=== PATIENT | female | born 1975 | race Caucasian/White ===

== ENCOUNTER 2023-03-31 10:46 | Day surgery (SDC) | payer MEDICAID ==
[~2023-03-31] VITALS: Ht 165.1 cm; Wt 63.0 kg
[2023-03-31] MEDS ORDERED: diphenhydrAMINE 50 MG/ML VIAL ONE (11:42)
[2023-03-31] MEDS ORDERED: MIDAZOLAM 5 MG/5 ML VIAL ONE (11:42)
[2023-03-31] MEDS ORDERED: fentaNYL citrate 0.05 MG/ML VIAL ONE (11:42)
[2023-03-31] MEDS: MIDAZOLAM 2 MG/2 ML VIAL IVP ONE (11:54)
[2023-03-31] MEDS: fentaNYL citrate 0.05 MG/ML VIAL IVP ONE (11:55)
== END 2023-03-31 12:47 | disposition home or self-care (01) ==
LOC: MDS 10:46 → MMU 10:48 → MDS 12:47
PROVIDERS: ATTEND Internal Medicine Gastroenterology
DX: R10.13 Epigastric pain (principal); R11.10 Vomiting, unspecified; K29.50 Unspecified chronic gastritis without bleeding; Z90.710 Acquired absence of both cervix and uterus; F17.210 Nicotine dependence, cigarettes, uncomplicated; Z79.899 Other long term (current) drug therapy
CPT/HCPCS: J1200; J2250; J3010

== ENCOUNTER 2023-04-04 19:54 | Emergency (ER) | payer MEDICAID ==
[~2023-04-04] VITALS: Ht 165.1 cm; Wt 62.1 kg
[2023-04-04 20:07] VITALS: BP 113/81; PULSE 89; RESP 18; TEMP 98; O2SAT 99
[2023-04-04] MEDS ORDERED: ONDANSETRON 4 MG/2 ML VIAL IVP ONE (20:30)
[2023-04-04] MEDS ORDERED: NACL 0.9% 1,000 ML IV SCH (20:30)
[2023-04-04] MEDS ORDERED: MORPHINE SULFATE 4 MG/ML SYR IVP ONE (20:30)
[2023-04-04 20:52] LABS: BASOPHILS % (AUTO) 0.1 % (0.0-2.0); EOSINOPHILS # (AUTO) 0.3 K/uL (0-0.4); EOSINOPHILS % (AUTO) 2.6 % (0.0-4.0); HEMATOCRIT 38.8 % (36-48); LYMPHOCYTES # (AUTO) 3.7 K/uL (2.5-16.5); LYMPHOCYTES % (AUTO) 34.5 % (20.5-51.1); MEAN CORPUSCULAR HEMOGLOBIN 30 pg (27-31); MEAN CORPUSCULAR HGB CONC 34 g/dL (33-37); MEAN CORPUSCULAR VOLUME 88.3 fL (80-94); MONOCYTES # (AUTO) 0.5 K/uL (0.8-1.0); MONOCYTES % (AUTO) 4.7 % (1.7-9.3); NEUTROPHILS # (AUTO) 6.2 K/uL (1.8-7.7); NEUTROPHILS % (AUTO) 58.1 % (42.2-75.2); PLATELET COUNT (AUTO) 296 K/uL (140-450); RED BLOOD CELL COUNT(AUTO) 4.39 MIL/uL (4.20-5.40); RED CELL DISTRIBUTION WIDTH 14.3 % (11.6-13.7); WHITE BLOOD COUNT (AUTO) 10.7 K/uL (4.8-10.8)
[2023-04-04 20:53] LABS: APPEARANCE,URINE CLEAR (CLEAR); BILIRUBIN,URINE NEGATIVE (NEGATIVE); BLOOD, URINE TRACE-I (NEGATIVE); COLOR,URINE YELLOW (YELLOW); LEUKOCYTE ESTERASE ,URINE NEGATIVE (NEGATIVE); NITRITE, URINE NEGATIVE (NEGATIVE); PH,URINE 7.5 (5.0-9.0); PROTEIN,URINE NEGATIVE (NEGATIVE); UGLUCOSE NEGATIVE (NEGATIVE); UROBILINOGEN,URINE 0.2 EU/dL (0.2 - 1)
[2023-04-04 21:01] VITALS: BP 128/84; PULSE 87; RESP 11
[2023-04-04 21:06] LABS: ALBUMIN 3.8 g/dL (3.4-5.0); ANION GAP 10.8 (8-16); CALCIUM 8.8 mg/dL (8.5-10.1); CREATININE 0.8 mg/dL (0.6-1.3); POTASSIUM 3.8 mmol/L (3.5-5.1); TOTAL BILIRUBIN 0.3 mg/dL (0.0-1.0); TOTAL PROTEIN, SERUM 7.6 g/dL (6.4-8.2)
[2023-04-04 21:11] VITALS: O2SAT 99
[2023-04-04 21:12] LABS: BACTERIA,URINE FEW /HPF (None Seen); RBC,URINE 0-5 /HPF (0-5); SQUAMOUS EPITHELIAL CELL,UR 0-3 (FEW) /LPF (0-3 (FEW)); WBC,URINE NONE SEEN /HPF (0-5)
[2023-04-04] MEDS ORDERED: FAMOTIDINE 20 MG/2 ML VIAL IVP ONE (21:15)
[2023-04-04] MEDS ORDERED: METOCLOPRAMIDE 10 MG/2 ML INJ VIAL IVP ONE (21:15)
== END 2023-04-04 22:45 | disposition left against medical advice (07) ==
LOC: MED 19:54
DX: R10.9 Unspecified abdominal pain (principal); Z79.899 Other long term (current) drug therapy
CPT/HCPCS: 36415; 74177; 80053; 81001; 81025; 83690; 85025; 96361; 96374; 96375; 99285; J2270; J2405; J2765; J3490; J7030; Q9967

== ENCOUNTER 2023-04-05 01:05 | Emergency (ER) | payer MEDICAID ==
[~2023-04-05] VITALS: Ht 165.1 cm; Wt 62.1 kg
[2023-04-05] MEDS ORDERED: LORazepam 2 MG/ML VIAL IVP ONE (01:10)
[2023-04-05] MEDS ORDERED: diphenhydrAMINE 50 MG/ML VIAL IVP ONE (01:10)
[2023-04-05 01:14] VITALS: RESP 18; O2SAT 99
[2023-04-05 03:45] VITALS: O2SAT 98
[2023-04-05 06:31] VITALS: O2SAT 98
[2023-04-05 07:55] VITALS: BP 101/65; PULSE 84; RESP 16; TEMP 97.1; O2SAT 96
[2023-04-05] MEDS ORDERED: MORPHINE SULFATE 2 MG/ML SYR ONE (08:00)
[2023-04-05] MEDS ORDERED: ONDANSETRON 4 MG/2 ML VIAL IVP ONE (08:00)
[2023-04-05] MEDS ORDERED: MORPHINE SULFATE 2 MG/ML SYR IVP ONE (08:00)
== END 2023-04-05 08:05 | disposition short-term general hospital (02) ==
LOC: MED 01:05
DX: R10.9 Unspecified abdominal pain (principal); Z20.822 Contact with and (suspected) exposure to COVID-19; R11.10 Vomiting, unspecified; Z79.899 Other long term (current) drug therapy
CPT/HCPCS: 36415; 83605; 87426; 96374; 96375; 99285; J1200; J2060; J2270

== ENCOUNTER 2023-04-07 02:48 | Emergency (ER) | payer MEDICAID, OTHER ==
[~2023-04-07] VITALS: Ht 165.1 cm; Wt 64.4 kg
[2023-04-07 03:21] VITALS: BP 142/80; PULSE 70; RESP 18; TEMP 97; O2SAT 99
[2023-04-07] MEDS ORDERED: ONDANSETRON 4 MG/2 ML VIAL IVP ONE (03:40)
[2023-04-07] MEDS ORDERED: NACL 0.9% 1,000 ML IV ONE (03:40)
[2023-04-07] MEDS ORDERED: MORPHINE SULFATE 4 MG/ML SYR IVP ONE ×2 (03:40→06:05)
[2023-04-07] MEDS ORDERED: diphenhydrAMINE 50 MG/ML VIAL IVP ONE (04:20)
[2023-04-07] MEDS ORDERED: LORazepam 2 MG/ML VIAL IVP ONE (04:20)
[2023-04-07 05:57] VITALS: BP 135/76; PULSE 71; RESP 18; TEMP 98; O2SAT 98
[2023-04-07 06:50] LABS: BASOPHILS # (AUTO) 0.1 K/uL (0.00-0.22); BASOPHILS % (AUTO) 0.8 % (0.0-2.0); EOSINOPHILS # (AUTO) 0.3 K/uL (0-0.4); EOSINOPHILS % (AUTO) 1.8 % (0.0-4.0); HEMATOCRIT 31.8 % (36-48); HEMOGLOBIN 10.5 g/dL (12.0-16.0); LYMPHOCYTES # (AUTO) 4.7 K/uL (2.5-16.5); LYMPHOCYTES % (AUTO) 32.9 % (20.5-51.1); MEAN CORPUSCULAR HEMOGLOBIN 29 pg (27-31); MEAN CORPUSCULAR HGB CONC 33 g/dL (33-37); MEAN CORPUSCULAR VOLUME 88.7 fL (80-94); MONOCYTES # (AUTO) 0.7 K/uL (0.8-1.0); MONOCYTES % (AUTO) 4.9 % (1.7-9.3); NEUTROPHILS # (AUTO) 8.6 K/uL (1.8-7.7); NEUTROPHILS % (AUTO) 59.6 % (42.2-75.2); PLATELET COUNT (AUTO) 254 K/uL (140-450); RED BLOOD CELL COUNT(AUTO) 3.59 MIL/uL (4.20-5.40); RED CELL DISTRIBUTION WIDTH 14.5 % (11.6-13.7); WHITE BLOOD COUNT (AUTO) 14.4 K/uL (4.8-10.8)
[2023-04-07 06:57] LABS: ALBUMIN 3.1 g/dL (3.4-5.0); ANION GAP 11.9 (8-16); CARBON DIOXIDE 26.7 mmol/L (21-32); CREATININE 0.7 mg/dL (0.6-1.3); POTASSIUM 3.6 mmol/L (3.5-5.1); TOTAL BILIRUBIN 0.3 mg/dL (0.0-1.0); TOTAL PROTEIN, SERUM 6.3 g/dL (6.4-8.2)
== END 2023-04-07 07:40 | disposition left against medical advice (07) ==
LOC: MED 03:00
DX: K20.90 Esophagitis, unspecified without bleeding (principal); Z98.84 Bariatric surgery status
CPT/HCPCS: 36415; 74176; 80053; 83690; 85025; 96361; 96374; 96375; 96376; 99285; J1200; J2060; J2270; J2405; J7030